=== PATIENT | female | born 1995 | race Native Hawaiian/Other Pacific Islander ===

== ENCOUNTER 2018-04-23 08:21 | Outpatient (CLI) | payer BC | END 2018-04-23 21:22 | disposition home or self-care (01) | LOC: LABW 08:21 | DX: N91.1 Secondary amenorrhea (principal) | CPT/HCPCS: 36415; 84702 ==

== ENCOUNTER 2019-01-06 09:48 | Outpatient (CLI) | payer BC | END 2019-01-06 23:21 | disposition home or self-care (01) | LOC: LABW 09:48 | DX: N92.5 Other specified irregular menstruation (principal) | CPT/HCPCS: 36415; 84702 ==

== ENCOUNTER 2021-12-23 14:24 | Outpatient (CLI) | payer BC | END 2021-12-23 18:57 | disposition home or self-care (01) | LOC: LAB 14:24 | PROVIDERS: ATTEND Physician Assistant | DX: N91.2 Amenorrhea, unspecified (principal) | CPT/HCPCS: 84702 ==